=== PATIENT | male | born 2000 | race African-American/Black ===

== ENCOUNTER 2021-09-11 14:22 | Emergency (ER) | payer SELFPAY ==
[~2021-09-11] VITALS: Ht 177.8 cm; Wt 59.4 kg
--- NOTE | 2021-09-11 14:30 | NUR ---
[id number], SLEEPING AT CLASS DIFFICULT TO AROUSE. BG 91 AWAKE DIRECTOR OF DISTANCE LEARNING. THE PATIENT IS ALERT AND ORIENTED X3 AT THIS TIME. DENIES PAIN. IN ROOM AIR AND DENIES SOB. RESPIRATION REGULAR AND UNLABORED. ATTACHED TO THE MONITOR. WARM BLANKET PROVIDED FOR COMFORT. WILL CONTINUE TO MONITOR THE PATIENT.
--- NOTE | 2021-09-11 14:41 | NUR ---
BELINDA CHAPIN MOTHER [phone]
--- NOTE | 2021-09-11 15:48 | NUR ---
Claudine downs in [facility] - 09/11/21 at 1643 by OWEN URINE COLLECTED AND SENT TO THE LAB
[2021-09-11 16:06] LABS: BASOPHILS % (AUTO) 0.6 % (0.0-2.0); EOSINOPHILS % (AUTO) 1.5 % (0.0-6.0); HEMATOCRIT 50 % (39-51); LYMPHOCYTES # (AUTO) 1.4 K/uL (0.8-4.8); LYMPHOCYTES % (AUTO) 21.1 % (20.0-44.0); MEAN CORPUSCULAR HGB CONC 34 g/dl (31.0-36.0); MEAN CORPUSCULAR VOLUME 93 fL (80-96); MONOCYTES # (AUTO) 0.5 K/uL (0.1-1.30); MONOCYTES % (AUTO) 7.3 % (2.0-12.0); NEUTROPHILS # (AUTO) 4.5 K/uL (1.8-8.9); NEUTROPHILS % (AUTO) 69.5 % (43.0-81.0); PLATELET COUNT (AUTO) 306 K/uL (150-450); WHITE BLOOD COUNT (AUTO) 6.4 K/uL (4.3-11.0)
[2021-09-11 16:24] LABS: MAGNESIUM 2.1 mg/dL (1.8-2.4)
[2021-09-11 16:25] LABS: SERUM AMMONIA 34 umol/L (11-32)
[2021-09-11 16:26] LABS: CALCIUM, SERUM 9.2 mg/dL (8.5-10.1); CARBON DIOXIDE 28 mmol/L (21-32); CHLORIDE 102 mmol/L (98-107); CREATININE 0.9 mg/dL (0.6-1.3); GLUCOSE 83 mg/dL (74-106); POTASSIUM 3.8 mmol/L (3.5-5.1); SODIUM SERUM 139 mmol/L (136-145); UREA NITROGEN, BLOOD 11 mg/dL (7-18)
[2021-09-11 16:33] LABS: ACETAMINOPHEN < 0 ug/ml (10-30); ALCOHOL, BLOOD < 3 mg/dL (0-0)
[2021-09-11 16:42] LABS: THYROID STIMULATING HORMONE 0.757 uIU/mL (0.358-3.74)
--- NOTE | 2021-09-11 17:14 | NUR ---
DR CHAVES MADE AWARE THAT THE PATIENT DID NOT PROVIDE URINE SPECIMEN AND PER MD "IT IS OK THAT HE DID NOT GIVE URINE, THE PATIENT STILL CAN BE DISCHARGED".
--- NOTE | 2021-09-11 17:20 | NUR ---
The patient is alert and oriented x4. Denies pain. In room air and denies SOB. Respiration regular and unlabored. Patient discharged to home in stable condition. Written and verbal after care instructions given. Patient verbalizes understanding of instruction. The patient called [employer].
[2021-09-11 17:21] VITALS: BP 129/84
== END 2021-09-11 17:21 | disposition home or self-care (01) ==
LOC: ER 16:37
DX: R53.1 Weakness (principal); R40.0 Somnolence; F84.0 Autistic disorder; F32.9 Major depressive disorder, single episode, unspecified; F41.9 Anxiety disorder, unspecified
CPT/HCPCS: 36415; 80048-TC; 82140-TC; 83735-TC; 84443-TC; 85025-TC; G0480